=== PATIENT | female | born 1995 | race Caucasian/White ===

== ENCOUNTER 2017-07-25 12:47 | Inpatient (IN) ==
[~2017-07-25 12:47] MED LIST: *HR* Nalbuphine 20 MG/ML AMPUL IVP PRN; Famotidine 20 MG/2 ML VIAL IVP PRN; Naloxone 0.4 MG/ML INJ IVP PRN; Ondansetron 4 MG/2 ML VIAL IVP PRN
[2017-07-25] MEDS ORDERED: Penicillin G Potassium 5,000,000 UNIT in 0.9 % Sodium Chloride Mini Bag 100 ML IVPB ONE (12:49)
[2017-07-25] MEDS ORDERED: Ringers Solution, Lactated 1,000 ML ONE (12:49)
[2017-07-25 12:57] LABS: Basophils % 0.2 %; Eosinophils % 0.2 %; Hematocrit 38.9 % (35.3-44.9); Immature Granulocytes % 0.7 % (0-4); Lymphocytes # 1.5 K/mcL (0.6-4.6); Mean Corpuscular HGB Conc 33.4 g/dL (31.6-35.5); Mean Corpuscular Volume 83.7 fL (83.0-100.0); Mean Platelet Volume 10.5 fL (9.4-12.4); Monocytes # 0.8 K/mcL (0.0-1.3); Monocytes % 8.1 %; Neutrophils # 7.5 K/mcL (1.6-8.9); Platelet Count 213 K/mcL (140-400); Red Blood Count 4.65 M/mcL (3.82-4.97); Red Cell Distribution Width 12.9 % (11.5-14.5); Segmented Neutrophils % 75.8 %
[2017-07-25] MEDS ORDERED: Ringers Solution, Lactated 1,000 ML IVC SCH (13:00)
--- NOTE | 2017-07-25 13:56 | OB/GYN History & Physical ---
Date of Encounter: 07/25/17 Time of Encounter: 13:54 Assessment and Plan (1) Spontaneous onset of labor Current visit: Yes Status: Acute patient admitted for delivery (2) 39 weeks gestation of Current visit: Yes Status: Acute admitted for labor (3) Group B streptococcal carriage complicating Current visit: Yes Status: Acute Will start PCN per protocol. History of Present Illness Chief complaint: labor HPI: Ms. Mcneal is a 22 year old female @ 39w1 day presents to labor and delivery with complaints of contractions that started 2 days ago however, became more intense this morning. Patient denies leaking of fluid or VB. Patient reports +FM. Blood type: A Positive Hep B: Nonreactive Rubella: unknown GBS: Positive Past Med Surg Social Fam HX - Past Medical History Source: patient Medical history: no medical history Psychiatric history: no psych history - Past Surgical History Surgical History: no surgical history - Social History Smoking Status: Never smoker Alcohol use: none Drug use: none Activity Level: Independent ambulation Recent Out of Country Travel Within the Last 8 Weeks: No Exposure or Possible Exposure to Illness During Travel: No - Family History Father Living Status: Still Living Hx Family Cardiac Disorders: Yes ("heart problems" unsure specifics) Hx Family Endocrine Disorder: Yes (diabetes) Obstetrical History - Pregnancies : 2 Para: 1 Term: 1 : 0 Ab's: 0 Livin Medications and Allergies Child's [place]-3 Dha Multivitam 1 tab PO DAILY 07/25/17 [History] Formula Tablet 1 tab PO DAILY 07/25/17 [History] 3 Allergy/AdvReac Type Severity Reaction Status Date / Time No Known Allergies Allergy Verified 07/25/17 12:45 Review of System OB - Constitutional Constitutional ROS IM: no chills, no fever(s) - Cardiovascular Cardiovascular: no lightheadedness, no palpitations, no syncope - Respiratory Respiratory: no cough - Gastrointestinal Gastrointestinal: no constipation, no diarrhea, no heartburn, no nausea, no vomiting - Genitourinary Genitourinary: no abnormal vaginal bleeding, no dysuria, no flank pain, no urinary frequency, no urinary urgency, no vaginal discharge, no vaginal odor, no vaginal pruritis Exam - Constitutional Constitutional: well developed, well nourished, no acute distress, average body habitus - HEENT HEENT: Normocephaly, Mucus Membranes Moist - Neck Neck exam: full ROM, supple - Lungs Respiratory exam: CTAB - Cardiovascular Cardiovascular exam: RRR, +S1, +S2 - Abdomen Abdomen: Present: bowel sounds normal, gravid, non tender - Extremities Extremities exam: full ROM, normal capillary refill, normal inspection Deep Tendon Reflex Grade: 2+ Normal - Cervix Dilation: 5 (per RN) Effacement: 80 Station: -1 - Uterus Uterus exam: Present: normal size, normal contour - Anus/Rectum Anus/Rectum: Present: normal perianal skin - Comments Comments: FHR 125 bpm moderate amount of variability +15x15 accels no decels noted. Cat. 1 tracing. Contractions 2-3 min apart. Results Result Diagrams: 07/25/17 12:49 All other labs normal. - VTE Reasons for not Prescribing Prophylaxis: Treatment not Indicated - Low risk for VTE
[2017-07-25] MEDS ORDERED: Lidocaine -MPF 1% 2 ML VIAL ID ONE (14:56)
[2017-07-25 15:33] LABS: Amphetamine Screen,Urine Negative ng/mL (Cutoff=1000); Barbiturate Screen,Urine Negative ng/mL (Cutoff=200); Benzodiazepines Screen,Urine Negative ng/mL (Cutoff=200); Cannabinoid Screen,Urine Negative ng/mL (Cutoff = 50); Cocaine Screen,Urine Negative ng/mL (Cutoff= 300); Opiate Screen,Urine Negative ng/mL (Cutoff=300); Phencyclidine Screen,Urine Negative ng/mL (Cutoff=25)
[2017-07-25] MEDS ORDERED: Penicillin G Potassium 2,500,000 UNIT in 0.9 % Sodium Chloride 100 ML IVPB SCH (17:00)
[2017-07-25] MEDS ORDERED: Epidural Premix (fent/bupiv) 110 ML EP SCH (18:15)
[2017-07-25] MEDS ORDERED: Epidural Premix (fent/bupiv) 110 ML EP ONE (18:16)
--- NOTE | 2017-07-25 19:23 | OB Labor Progress Note ---
Date of Encounter: 07/25/17 Time of Encounter: 19:21 Labor Progress Note - Subjective Subjective: Patient resting comfortable with epidural in place. Discussed POC with patient. Patient denies any questions or concerns. - Cervix Cervix: 8.5/100/0 - Heart Tones Heart Tones: 125 bpm moderate variability +15x15 accels no decels noted. Cat. 1 tracing. - [place]: 2-4 min apart - Interventions Interventions: SVE, AROM small amount of clear fluid. Patient tolerated well. - Plan Plan: Continue labor management. Anticipate SVE.
--- NOTE | 2017-07-25 20:57 | Anesthesia Evaluation PreOp ---
Date of Encounter: 07/25/17 Time of Encounter: 18:20 - Past History Planned Operation: charisma Cardiac History: Denies any Significant Hx Pulmonary History: Denies Any Significant HX PERSONAL CARE AIDE History: Denies Any Significant HX Other Medical History: Denies Any Significant HX Anesthesia History: No Prior Anesthetic Complications : Yes Test: Positive Alcohol Use: none Drug use: none Medications and Allergies Child's [employer]-3 Dha Multivitam 1 tab PO DAILY 07/25/17 [History] Formula Tablet 1 tab PO DAILY 07/25/17 [History] 3 Allergy/AdvReac Type Severity Reaction Status Date / Time No Known Allergies Allergy Verified 07/25/17 12:45 - Meds/Allergy Pre-op Review Medications Reviewed: Yes Allergies Reviewed: No Beta Blockers on Current Med List: No Anesthesia Results - Labs 07/25/17 12:49 Anesthesia Exam - HEENT Pupil (Motor): Pupils equal Mallampati: II Teeth: Normal Oral Opening: Greater than 3 - PERSONAL CARE AIDE LOC: Oriented PERSONAL CARE AIDE Motor: Normal RUE, Normal LUE, Normal RLE, Normal LLE, Normal Face PERSONAL CARE AIDE Sensory: Normal: RUE, LUE, RLE, LLE, Face - Cardiac Rhythm: Regular Murmur: None JVD: No Carotid Bruit: No - Pulmonary Breath Sounds: bilateral Clear Respiratory Effort: Symmetrical Anesthesia Assess/Plan ASA Score: 1 Modified [place]ann[place] Scale for Level of Consciousness: Cooperative, oriented, and tranquil Anesthetic Plan: Regional Autologous Blood: No Monitoring Plan: Standard Monitors
--- NOTE | 2017-07-25 21:03 | Anesthesia Procedures ---
Date of Encounter: 07/25/17 Time of Encounter: 18:20 Procedures: Anesthesia - Epidural/Spinal Patient ID/Chart reviewed: Yes Patient examined: Yes OB Eval: Gestational age: 39 OB Eval: : 2 OB Eval: Hx Para: 1 OB Eval: Contractions: Non-stressed pattern Consent Obtained: Yes Supplemental Oxygen: None/Room Air Site Prep: Aseptic Technique, Sterile prep and drape, Povidone-Iodine 1% Patient position: upright Amount of Local Anesthetic used: 3 Touhy Needle Gauge: 18 Touhy Needle Depth (cm): 4 Catheter Depth at Skin (cm): 7 Test Dose Result: Negative Infusion Med: 0.125% Bupivacaine w/ 2 mcg/ml Fentanyl Infusion Rate (mls/hr): [address]: Tegaderm, Tape Interspace Used: L4-L5 Loss of Resistance (VIOLETTA): Yes Blood: No CSF: No Paresthesia: No Vitals + FHT's: stable throughout see nursing notes
[2017-07-25] MEDS ORDERED: Oxytocin 20 units/ LR 1000 mL 20 UNIT/1,000 ML BAG IVC ONE (21:14)
--- NOTE | 2017-07-25 22:02 | OB/GYN Procedure Note ---
Delivery - Delivery Date: 07/25/17 Provider: Sheyla Barragan Intrapartum events: none Delivery induction: none Delivery augmentation: rupture of membranes Delivery monitor: external FHT, external uterine Anesthesia: epidural Estimated Blood Loss: 250 - (s) Infant A Delivery Date: 07/25/17 Infant Delivery Time: 21:37 Presentation: vertex Position: BAKARI Route of delivery: Gender: Female Viability: Viable Pounds: 7 Ounces: 11 Weight Gram: 3485 kg at 1 minute: 8 at 5 mins: 9 Shoulder Dystocia: not encountered Specimens collected: cord blood Placenta: spontaneous Cord: nuchal cord (X1 loose easily reduced. ), 3 umbilical vessels - Repair Episiotomy: none Laceration Description: None - Complications Delivery complications: none - Disposition Mom disposition: stable in LDR disposition: stable in LDR - Comments Comments: Called to LDR patient complete and pushing. Patient placed in stirrups and prepped for vaginal delivery. Under maternal effort patient spontaneously delivered a viable female over an intact perinuem. A nuchal cord was noted and reduced easily. No shoulder dystocia or meconium was encountered. Infant placed on maternal abdomen. Cord was clamped and cut after pulsation ceased. Placenta delivered spontaneously and intact. remains skin to skin. Pericare provided. Both mother and stable in recovery for 2 hours.
[2017-07-26] MEDS ORDERED: Ibuprofen 600 MG TABLET PO PRN (00:08)
[2017-07-26] MEDS ORDERED: Lanolin 7 G OINT...G. TP PRN (00:08)
[2017-07-26] MEDS ORDERED: Measles/Mumps/Rubella Vacc 0.5 ML VIAL SQ PRN (00:08)
[2017-07-26] MEDS ORDERED: Oxytocin 20 units/ LR 1000 mL 20 UNIT/1,000 ML BAG IVC SCH (00:08)
[2017-07-26] MEDS ORDERED: Acetaminophen 325 MG TABLET PO PRN (00:08)
--- NOTE | 2017-07-26 08:32 | Discharge Summary ---
Date of Encounter: 07/26/17 Time of Encounter: 08:30 - Discharge Diagnosis (1) Status post vaginal delivery Priority: Primary Status: Acute Comments: Patient is doing well s/p vaginal delivery. Pain is well controlled Patient is tolerating regular diet well. Patient has not yet passed stool but is passing urine without difficulty. Lochia is light. Patient notes having slightly more trouble breast feeding than with her first child. Patient will receive education. She will also be sent home with a breast pump. Patient agrees to discharge home today Plan is to discharge home today and continue management of care (2) Group B streptococcal carriage complicating Priority: Secondary Status: Acute - Discharge Medications Prescriptions: Ibuprofen [Motrin] 600 mg PO Q6HR PRN #30 tab PRN Reason: Mild Pain Breast Pump [BREAST PUMP] 1 each .ROUTE AD #1 each Docusate [Colace] 100 mg PO BID #30 capsule Home Medications: Child's [place]-3 Dha Multivitam 1 tab PO DAILY 07/25/17 [History] Formula Tablet 1 tab PO DAILY 07/25/17 [History] Breast Pump [BREAST PUMP] 1 each .ROUTE AD #1 each 07/26/17 [Rx] Docusate [Colace] 100 mg PO BID #30 capsule 07/26/17 [Rx] Ibuprofen [Motrin] 600 mg PO Q6HR PRN #30 tab 07/26/17 [Rx] Allergies/Adverse Reactions: 3 Allergy/AdvReac Type Severity Reaction Status Date / Time No Known Allergies Allergy Verified 07/25/17 12:45 Data Procedures and tests throughout hospitalization: Laboratory Tests 07/25/17 07/25/17 12:49 15:16 WBC 9.9 RBC 4.65 Hgb 13.0 Hct 38.9 MCV 83.7 MCH 28.0 MCHC 33.4 RDW 12.9 Plt Count 213 MPV 10.5 Immature Gran % 0.7 Seg Neutrophils % 75.8 Lymphocytes % 15.0 Monocytes % 8.1 Eosinophils % 0.2 Basophils % 0.2 Neutrophils # 7.5 Lymphocytes # 1.5 Monocytes # 0.8 Eosinophils # 0.0 Basophils # 0.0 Urine Opiates Screen Negative Ur Barbiturates Screen Negative Ur Phencyclidine Scrn Negative Ur Amphetamines Screen Negative U Benzodiazepines Scrn Negative Urine Cocaine Screen Negative U Marijuana (THC) Screen Negative Labs on day of discharge: Labs from last 24 hours 07/25/17 07/25/17 15:16 12:49 WBC 9.9 RBC 4.65 Hgb 13.0 Hct 38.9 MCV 83.7 MCH 28.0 MCHC 33.4 RDW 12.9 Plt Count 213 MPV 10.5 Immature Gran % 0.7 Seg Neutrophils % 75.8 Lymphocytes % 15.0 Monocytes % 8.1 Eosinophils % 0.2 Basophils % 0.2 Neutrophils # 7.5 Lymphocytes # 1.5 Monocytes # 0.8 Eosinophils # 0.0 Basophils # 0.0 Urine Opiates Screen Negative Ur Barbiturates Screen Negative Ur Phencyclidine Scrn Negative Ur Amphetamines Screen Negative U Benzodiazepines Scrn Negative Urine Cocaine Screen Negative U Marijuana (THC) Screen Negative Date of admission: 07/25/17 12:47 Consults: 07/26/17 00:08 Consult to Moving Worker [CONS] Routine Comment: Vaginal delivery, consult needed Discharging clinician: Vince Henderson Anticipated date of discharge: 07/26/17 - Patient Status Disposition: Home, Self-Care Condition: Good Functional capacity at discharge: independent ambulation Overall status at discharge: patient is back to baseline - Discharge Instructions Additional Instructions: Perineal Care: Always wipe front to back Change your pad frequently Use your arianne bottle with warm water and spray front to back Do not douche, use tampons, have sexual intercourse or put anything in your vagina for 4-6 weeks after delivery Bleeding: Vaginal bleeding can last up to 6 weeks Your menstrual period may return as early as 6 weeks after you are discharged from the hospital [place]/Stitches Care: Vaginal Delivery Vaginal stitches will dissolve within 4-6 weeks Follow perineal care instructions Care Stitches will dissolve on their own If you have prashant, they will need to be removed in the doctors office within 5-7 days. You may shower with stitches or prashant Drip plan or soapy water over the incision to clean. Pat dry gently with a clean towel. Make sure you completely dry under the skin folds DO NOT USE powders, lotions, rubbing alcohol or hydrogen peroxide on or around your incision. This will slow your wound healing It is normal to have soreness, burning, tingling, itchiness and/or numbness as your incision heals Activity: Rest frequently Do not lift anything heavier than a gallon of milk, up to 10-15 pounds No driving for 1-2 weeks for Vaginal delivery No driving for 2-4 weeks for delivery Take stairs slowly, one at a time Gradually increase your daily activity until you are back to your normal routine Do not exercise until you have had your follow-up appointment Bathing: Take a shower daily Do not take a tub bath for the first 4 weeks Diet: Drink plenty of water and fruit juices Eat a well-balanced diet with foods high in fiber such as fruits and vegetables Depression: Your hormones have a major impact on your feelings and emotions. Hormone imbalance may cause changes in your mood, creating unfamiliar thoughts and actions. Support is available to help you understand and cope with these feelings and mood changes. If you answer yes to any of the following questions, please call your health care provider: Are you having trouble sleeping? Are you feeling isolated? Have you lost your appetite? Are you having thoughts of hurting yourself or others? WARNING SIGNS: Heavy bleeding from the vagina (blood is bright red and soaks a sanitary pad in an hour or less.) Passing a blood clot larger than your fist Discharge from the vagina that has a bad odor Temperature over 100.4 F, or if you feel cold and have chills An episiotomy site that is warm, swollen or oozing. Use a mirror if needed Urination (pee) that is painful, very red and swollen or leaking fluid An incision that is painful, very red and swollen and leaking fluid An incision that has come open Breasts that are painful or full with flu like symptoms Redness, warmth or swelling in the calf of your leg Trouble breathing, dizziness, visual disturbance or faintness *Notify your health care provider immediately or go to the nearest Emergency Room if you experience any of the above signs.* To contact the nurses station 24 hours a day, For non-urgent, routine questions, please call the office at - Diet and Activity Activity: increase activity as tolerated Diet: advance to your usual diet Hospital Course Reason for admission: induction of labor Delivery: Episiotomy: none Laceration: none Other procedures: none complications: none Discharge diagnosis: IUP at term delivered baby: female Time Attestation: Total time spent providing and/or coordinating discharge services: Time Spent: Greater than 30 minutes Exam - Constitutional Vitals: Temp Pulse Resp BP Pulse Ox 97.9 F 86 16 125/76 99 07/26/17 02:00 07/26/17 02:00 07/26/17 02:00 07/26/17 02:00 07/26/17 02:00 General appearance IM: cooperative, A&O X 3, no acute distress - Respiratory Respiratory exam: Present: CTAB - Cardiovascular Cardiovascular exam IM: Present: RRR, +S1, +S2 - GI/Abdominal GI/Abdominal exam IM: diminished bowel sounds, soft - Uterine Tone: Firm Uterus Position: 1 Finger Below Umbilicus - Extremities Exam Extremities exam IM: Present: normal inspection - Psychiatric Additional comments: Patient's mood is good - Attending Attestation I examined this patient and my medical decision-making was reviewed with the Resident Physician. I agree with the documented findings, disposition and treatment plan as described. Nicolas Carrasco CNM
[2017-07-26] MEDS ORDERED: Prenatal Vit/FA 1 EACH TABLET PO SCH (09:00)
[2017-07-26 09:18] VITALS: BP 112/73
== END 2017-07-26 16:03 | disposition home or self-care (01) | DRG 775 ==
LOC: 1NENULAB → 1NENUOBS 07-26 00:05
PROVIDERS: ADMIT Advanced Practice Midwife; ATTEND Advanced Practice Midwife